=== PATIENT | female | born 1955 | race Caucasian/White ===

== ENCOUNTER 2017-08-23 09:20 | Outpatient (CLI) | payer OTHER ==
--- NOTE | 2017-08-31 16:12 | MMO ---
BILATERAL SCREENING MAMMOGRAMS: Comparison is made to the exam from 2015. Interpreted with computer-aided detection. There are bilateral breast implants which appear intact and stable. There are scattered fibroglandular densities. No mass, distortion, or suspicious calcification. Rec ommend 1-year followup. IMPRESSION: BI-RADS 1, negative. BIRADS 1: Negative Routine annual screening mammography (for women over age 40) POS: [facility]
== END 2017-08-23 09:21 | disposition home or self-care (01) ==
LOC: SCSMAMMO 09:20
PROVIDERS: ATTEND Internal Medicine
DX: Z12.31 Encounter for screening mammogram for malignant neoplasm of breast (principal)
CPT/HCPCS: 77067